=== PATIENT | male | born 1965 | race American Indian/Alaskan Native ===

== ENCOUNTER 2019-01-21 11:58 | Outpatient (CLI) | payer OTHER ==
--- NOTE | 2019-01-22 16:46 | Nuclear Medicine Report ---
PROCEDURE: NM BONE SCAN WHOLE BODY TECHNIQUE: Nuclear medicine bone scan Whole body bone scan performed following intravenous administration of 25 mCi technetium 99m MDP HISTORY: MALIGNANT NEOPLASM OF PROSTATE COMPARISONS: FINDINGS: There is moderately increased activity at both knee joints with greater activity on the right. Increa sed activity at both distal femurs and tibial plateaus. Also noted is increased activity about the ta jay. There is mildly increased activity at the right shoulder and the sternomanubrial joints. No additiona l foci of abnormal activity are observed. 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 This document is electronically signed by Nestor Genoa MD., January 22 2019 04:44:11 PM ET
== END 2019-01-21 11:59 | disposition home or self-care (01) ==
LOC: NM 11:58
PROVIDERS: ATTEND Urology
DX: C61 Malignant neoplasm of prostate (principal)
CPT/HCPCS: 78306; A9503